=== PATIENT | female | born 1965 | race African-American/Black ===

== ENCOUNTER 2020-07-03 14:01 | Emergency (ER) | payer OTHER ==
[2020-07-03 14:12] VITALS: TEMP 99.2; BMI 29.1
[2020-07-03 16:58] LABS: HEMATOCRIT 34.2 % (32.4-45.2); HEMOGLOBIN 11.1 GM/dL (10.7-15.3); MCH 31.7 pg (25.7-33.7); MCHC 32.5 g/dl (32.0-36.0); MEAN CELL VOLUME 97.4 fl (80-96); MEAN PLT VOLUME 10.3 fl (7.5-11.1); PLATELET COUNT 176 K/MM3 (134-434); RBC 3.51 M/mm3 (3.60-5.2); RDW 14.4 % (11.6-15.6)
[2020-07-03 17:08] LABS: INR 1.04 (0.83-1.09); PROTHROMBIN TIME (PATIENT) 12.8 SEC (9.7-13.0)
[2020-07-03 17:11] LABS: ACTIVATED PTT 39.8 SECONDS (25.2-36.5)
[2020-07-03 17:17] LABS: CHLORIDE 106 mmol/L (98-107); SODIUM 137 mmol/L (136-145)
[2020-07-03 17:21] LABS: ALBUMIN 3.5 g/dl (3.4-5.0); ANION GAP 8 MMOL/L (8-16); BLOOD UREA NITROGEN 18.8 mg/dL (7-18); CALCIUM 7.8 mg/dL (8.5-10.1); CO2 23 mmol/L (21-32); GLUCOSE,RANDOM 63 mg/dL (74-106)
[2020-07-03 17:24] LABS: CREATININE 1.2 mg/dL (0.55-1.3); SGPT/ALT 26 U/L (13-61)
[2020-07-03 17:25] LABS: SGOT/AST 47 U/L (15-37)
[2020-07-03 17:26] LABS: BILIRUBIN,TOTAL 0.4 mg/dL (0.2-1); TOT PROT 7.4 g/dl (6.4-8.2)
[2020-07-03 17:27] LABS: ALK PHOS 95 U/L (45-117)
[2020-07-03] MEDS ORDERED: AZITHROMYCIN 500 MG TABLET PO ONE (20:16)
[2020-07-03] MEDS ORDERED: AZITHROMYCIN 250 MG TABLET ONE (20:18)
[2020-07-03 20:34] VITALS: BP 139/96; PULSE 89
== END 2020-07-03 20:34 | disposition home or self-care (01) ==
LOC: JER 14:01
DX: R06.02 Shortness of breath (principal); B34.9 Viral infection, unspecified
CPT/HCPCS: 36415; 71045-TC-FY; 71275-TC; 80053; 82550; 82553; 84484; 85027; 85379; 85610; 85730; 99285-25; C9803; Q9967; U0003

== ENCOUNTER 2020-08-09 14:21 | Inpatient (IN) | payer OTHER ==
[2020-08-09 14:35] VITALS: BMI 28.3
[2020-08-09] MEDS ORDERED: ACETAMINOPHEN 1000 MG/100 ML VIAL (NON FORMULARY) IVPB ONE (15:06)
[2020-08-09] MEDS ORDERED: ACETAMINOPHEN INJECTION 100 ML IVPB ONE (16:33)
[2020-08-09 16:35] LABS: BASO % 1.4 % (0-2.0); EOS % 0.3 % (0-4.5); HEMATOCRIT 31.7 % (32.4-45.2); HEMOGLOBIN 10.4 GM/dL (10.7-15.3); LYMPH % 41.6 % (8-40); MCH 31.1 pg (25.7-33.7); MCHC 32.9 g/dl (32.0-36.0); MEAN CELL VOLUME 94.5 fl (80-96); MEAN PLT VOLUME 8.7 fl (7.5-11.1); MONO % 3.2 % (3.8-10.2); NEUT % 53.5 % (42.8-82.8); PLATELET COUNT 188 K/MM3 (134-434); RBC 3.36 M/mm3 (3.60-5.2); RDW 13.6 % (11.6-15.6); WHITE BLOOD COUNT 5.5 K/mm3 (4.0-10.0)
[2020-08-09] MEDS ORDERED: DEXAMETHASONE SOD PHOSPHATE 10 MG/1 ML VIAL IVPUSH ONE (16:45)
[2020-08-09 16:55] LABS: POTASSIUM 3.8 mmol/L (3.5-5.1)
[2020-08-09 16:57] LABS: CALCIUM 9.2 mg/dL (8.5-10.1)
[2020-08-09 16:58] LABS: BLOOD UREA NITROGEN 17.8 mg/dL (7-18)
[2020-08-09] MEDS ORDERED: SODIUM CHLORIDE 1,000 ML IV STA (17:00)
[2020-08-09 17:01] LABS: CREATININE 1.3 mg/dL (0.55-1.3)
[2020-08-09 17:03] LABS: BILIRUBIN,TOTAL 0.5 mg/dL (0.2-1); TOT PROT 7.1 g/dl (6.4-8.2)
[2020-08-09 17:05] LABS: INR 1.15 (0.83-1.09); PROTHROMBIN TIME (PATIENT) 14.1 SEC (9.7-13.0)
[2020-08-09 17:08] LABS: ACTIVATED PTT 34.3 SECONDS (25.2-36.5)
[2020-08-09 17:09] LABS: N-TERMINAL BNP 4153.5 pg/ml (5-125)
[2020-08-09] MEDS ORDERED: DEXAMETHASONE SOD PHOSPHATE 10 MG/1 ML VIAL ONE (18:31)
[2020-08-09] MEDS ORDERED: NIFEdipine 10 MG CAPSULE (FP) PO ONE (21:29)
[2020-08-09] MEDS ORDERED: NIFEdipine E.R. 30 MG TABLET ONE (22:27)
[2020-08-09] MEDS ORDERED: NIFEdipine E.R. 30 MG TABLET PO ONE (22:31)
[2020-08-09] MEDS ORDERED: FUROSEMIDE 40 MG/4 ML INJECTABLE VIAL IVPUSH ONE (22:34)
[2020-08-09] MEDS ORDERED: FUROSEMIDE 40 MG/4 ML INJECTABLE VIAL ONE (22:39)
[2020-08-09] MEDS: CEFTRIAXONE 1 GM in DEXTROSE 5%-WATER - 50 ML IVPB SCH (22:53)
[2020-08-09 23:49] LABS: RETICULOCYTES 1.17 % (0.5-1.5)
[2020-08-09] MEDS: DOXYCYCLINE INJECTION 100 MG in DEXTROSE 5%-WATER - 100 ML IVPB SCH (23:58)
[2020-08-10 02:45] LABS: PH,URINE 5.5 (5.0-8.0); URINE APPEARANCE CLEAR; URINE BILIRUBIN NEGATIVE (NEGATIVE); URINE COLOR YELLOW; URINE GLUCOSE (UA) NEGATIVE (NEGATIVE); URINE KETONE NEGATIVE (NEGATIVE); URINE LEUK ESTERASE NEGATIVE (NEGATIVE); URINE NITRITE NEGATIVE (NEGATIVE); URINE PROTEIN NEGATIVE (NEGATIVE); URINE UROBILINOGEN 0.2 mg/dL (0.2-1.0)
[2020-08-10 02:58] LABS: CREATININE, URINE RANDOM < 13.0 mg/dL (30-150)
[2020-08-10 09:00] LABS: BASO % 0.2 % (0-2.0); HEMATOCRIT 29.2 % (32.4-45.2); HEMOGLOBIN 9.8 GM/dL (10.7-15.3); LYMPH % 21.5 % (8-40); MCH 31.6 pg (25.7-33.7); MCHC 33.6 g/dl (32.0-36.0); MEAN CELL VOLUME 94.1 fl (80-96); MEAN PLT VOLUME 9.6 fl (7.5-11.1); MONO % 2.7 % (3.8-10.2); NEUT % 75.6 % (42.8-82.8); PLATELET COUNT 164 K/MM3 (134-434); RDW 13.7 % (11.6-15.6); WHITE BLOOD COUNT 4.3 K/mm3 (4.0-10.0)
[2020-08-10 09:14] LABS: POTASSIUM 4.3 mmol/L (3.5-5.1)
[2020-08-10 09:23] LABS: ALBUMIN 3.6 g/dl (3.4-5.0); BLOOD UREA NITROGEN 21.9 mg/dL (7-18); CALCIUM 8.6 mg/dL (8.5-10.1); MAGNESIUM 1.9 mg/dL (1.8-2.4)
[2020-08-10 09:26] LABS: CREATININE 1.2 mg/dL (0.55-1.3)
[2020-08-10 09:27] LABS: PHOSPHOROUS 3.4 mg/dL (2.5-4.9)
[2020-08-10 09:28] LABS: BILIRUBIN,TOTAL 0.6 mg/dL (0.2-1)
[2020-08-10 09:31] LABS: TOT PROT 6.4 g/dl (6.4-8.2)
[2020-08-10] MEDS ORDERED: FUROSEMIDE 40 MG/4 ML INJECTABLE VIAL IVPUSH ONE (10:02)
[2020-08-10] MEDS ORDERED: ENOXAPARIN NA (PORCINE) 40 MG/0.4 ML DISP.SYRIN SQ ONE (10:51)
[2020-08-10] MEDS ORDERED: DOXYCYCLINE HYCLATE 100 MG VIAL ONE (10:51)
[2020-08-10] MEDS ORDERED: CEFTRIAXONE 1 GM/50 ML BAG ONE ×2 (10:51)
[2020-08-10] MEDS: ENOXAPARIN NA (PORCINE) 40 MG/0.4 ML DISP.SYRIN SQ SCH (10:54)
[2020-08-10] MEDS: CEFTRIAXONE 1 GM in DEXTROSE 5%-WATER - 50 ML IVPB SCH (10:54)
[2020-08-10] MEDS ORDERED: FUROSEMIDE 40 MG/4 ML INJECTABLE VIAL ONE (12:14)
[2020-08-10] MEDS: DOXYCYCLINE INJECTION 100 MG in DEXTROSE 5%-WATER - 100 ML IVPB SCH (12:23)
[2020-08-10] MEDS ORDERED: LISINOPRIL 5 MG TABLET PO ONE (13:57)
[2020-08-10] MEDS ORDERED: LISINOPRIL 5 MG TABLET ONE (17:45)
[2020-08-10] MEDS ORDERED: NIFEdipine E.R. 30 MG TABLET PO ONE (22:04)
[2020-08-11 07:33] LABS: BASO % 0.5 % (0-2.0); EOS % 1.1 % (0-4.5); HEMATOCRIT 28.1 % (32.4-45.2); HEMOGLOBIN 9.4 GM/dL (10.7-15.3); LYMPH % 47.6 % (8-40); MCH 31.5 pg (25.7-33.7); MCHC 33.3 g/dl (32.0-36.0); MEAN CELL VOLUME 94.5 fl (80-96); MEAN PLT VOLUME 9.3 fl (7.5-11.1); MONO % 3.6 % (3.8-10.2); NEUT % 47.2 % (42.8-82.8); PLATELET COUNT 157 K/MM3 (134-434); RBC 2.98 M/mm3 (3.60-5.2); RDW 13.7 % (11.6-15.6)
[2020-08-11 08:05] LABS: POTASSIUM 3.2 mmol/L (3.5-5.1)
[2020-08-11 08:08] LABS: BLOOD UREA NITROGEN 19.2 mg/dL (7-18); CALCIUM 8.6 mg/dL (8.5-10.1)
[2020-08-11 08:12] LABS: CREATININE 1.2 mg/dL (0.55-1.3)
[2020-08-11] MEDS ORDERED: FUROSEMIDE 40 MG/4 ML INJECTABLE VIAL IVPB SCH (10:00)
[2020-08-11] MEDS ORDERED: LISINOPRIL 5 MG TABLET PO SCH (10:00)
[2020-08-11] MEDS: ENOXAPARIN NA (PORCINE) 40 MG/0.4 ML DISP.SYRIN SQ SCH (10:35)
[2020-08-11] MEDS ORDERED: LISINOPRIL 5 MG TABLET ONE (10:45)
[2020-08-11] MEDS ORDERED: FUROSEMIDE 40 MG/4 ML INJECTABLE VIAL ONE (10:45)
[2020-08-11] MEDS ORDERED: ENOXAPARIN NA (PORCINE) 40 MG/0.4 ML DISP.SYRIN SQ ONE (10:45)
[2020-08-11 17:12] VITALS: BP 118/84; PULSE 104; TEMP 98.5
== END 2020-08-11 16:50 | disposition home or self-care (01) | DRG 194 ==
LOC: JER 14:21 → JERBED 17:36
PROVIDERS: ADMIT Internal Medicine
DX: I50.21 Acute systolic (congestive) heart failure (principal); R79.89 Other specified abnormal findings of blood chemistry; I42.0 Dilated cardiomyopathy; D64.9 Anemia, unspecified; R06.02 Shortness of breath; Z98.84 Bariatric surgery status; Z85.3 Personal history of malignant neoplasm of breast
CPT/HCPCS: 36415; 71046-TC-FY; 71275-TC; 80048; 80053; 80061; 81003; 82565; 82728; 83036; 83540; 83550; 83605; 83615; 83721; 83735; 83880; 84100; 84156; 84443; 84484; 85025; 85045; 85379; 85610; 85730; 87040; 87807; 87899; 93005; 93010; 93306-TC; 93970-TC; 99285-25; C9803; J1100; U0003